=== PATIENT | female | born 1960 | race Caucasian/White ===

== ENCOUNTER → 2016-11-03 | Outpatient (CLI) | payer BC ==
[~2016-11-03] MED LIST: ACETAMINOPHEN-H1 TA2 PO; CIPRO500 MG PO; FLAGYL500 MG PO; METFORMIN500 MG PO; PRAVACHOL40 MG PO; TANZEUM50 MG SC
[2016-11-03 09:10] LABS: BASO # 0.1 10*3/uL (0.0-0.1); BASO % 0.5 % (0.0-1.0); EOS # 0.2 10*3/uL (0.0-0.4); EOS % 1.7 % (1.0-4.0); HEMATOCRIT 47.6 % (37.0-47.0); HEMOGLOBIN 16.1 g/dl (12.0-16.0); IG # 0.1 10*3/uL (0.0-0.1); LYMPH # 2.9 10*3/uL (1.3-4.4); LYMPH % 31.1 % (27.0-41.0); MEAN CELL VOLUME 84.7 fl (81.0-99.0); MEAN CORPUSCULAR HGB 28.6 pg (27.0-31.0); MEAN CORPUSCULAR HGB CONC 33.8 g/dl (33.0-37.0); MEAN PLATELET VOLUME 9.8 fl (9.6-12.3); MONO # 0.8 10*3/uL (0.1-1.0); MONO % 8.2 % (3.0-9.0); NEUT # 5.4 10*3/uL (2.3-7.9); NEUT % 57.7 % (47.0-73.0); PLATELET COUNT AUTOMATED 327 10*3/uL (130-400); RED BLOOD COUNT 5.62 10*6/uL (4.10-5.10); RED CELL DISTRI WIDTH 13.5 % (0-14.5); WHITE BLOOD COUNT 9.3 10*3/uL (4.8-10.8)
[2016-11-03 09:31] LABS: HEMOGLOBIN A1c 9.4 % (4.8-5.6)
[2016-11-03 09:40] LABS: ALBUMIN 3.5 gm/dl (3.1-4.5); ALKALINE PHOSPHATASE 106 U/L (45-117); BILIRUBIN, TOTAL 0.5 mg/dl (0.2-1.0); BUN 13 mg/dl (7-24); CARBON DIOXIDE 26 mmol/L (21-32); CHLORIDE 103 mmol/L (98-107); CHOLESTEROL 211 mg/dL (<200); EST GLOM FILT AFRICAN AMERICAN > 60 ml/min; GLUCOSE 215 mg/dL (65-99); HDL CHOLESTEROL 45 mg/dl (40-60); LDL CHOLESTEROL 112 mg/dL (9-159); POTASSIUM 3.6 mmol/L (3.5-5.1); SGOT/AST 20 IU/L (3-35); SGPT/ALT 31 U/L (12-78); SODIUM 141 mmol/L (136-145); TOTAL PROTEIN 7.4 gm/dL (6.4-8.2); TRIGLYCERIDES 268 mg/dl (<150); VLDL CHOLESTEROL 54 mg/dL (6-40)
== END | disposition home or self-care (01) ==
LOC: LAB 08:13
PROVIDERS: Internal Medicine
DX: E11.9 Type 2 diabetes mellitus without complications (principal); I10 Essential (primary) hypertension; E78.5 Hyperlipidemia, unspecified

== ENCOUNTER → 2017-01-16 | Day surgery (SDC) | payer BC ==
[~2017-01-16] VITALS: Ht 160 cm; Wt 99.8 kg
[~2017-01-16] MED LIST changes: +LISINOPRIL10 M1 PO; +NORCO 5-325 TA1 EACH PO
--- NOTE | ~2017-01-16 | PROC NOTE ---
[place], [place] PROCEDURE NOTE NAME: PEYMAN WILSON UNIT #: [id number] ROOM: DOCTOR: HONORIO LOPEZ MD BIRTHDATE: [birth year] DOS: 01/16/2017 PREOPERATIVE DIAGNOSIS: Left gluteal soft tissue mass. POSTOPERATIVE DIAGNOSIS: Left gluteal soft tissue mass. PROCEDURE: Excision of left gluteal soft tissue mass. SURGEON: Honorio Lopez M.D. [employer] REFINING [employer]ER: PGY1. ANESTHESIA: Local. INDICATIONS: This is a 56-year-old lady with a longstanding history of a symptomatic left gluteal mass, who is here for the above-mentioned procedure. The procedure and its complications explained to the patient in detail. Complications that were discussed included, but were not limited to bleeding, infection, hematoma/seroma/abscess formation, and prolonged pain. She agreed to proceed. DESCRIPTION OF PROCEDURE: After identifying the patient, the patient was brought to the operative suite and laid in the supine position. The patient was placed in the right lateral position and the parts were painted and draped in the usual sterile fashion and a time-out procedure was called. An incision was marked in the long access of the incision and local anesthesia was infiltrated. Incision was made with the help of knife and deepened in layers. The mass was excised in its entirety after it was dissected away from the surrounding structures and sent for histopathological diagnosis, and after hemostasis was achieved, the subcutaneous tissue was then approximated with the help of 3-0 Vicryl in an interrupted fashion and the skin was approximated with the help of 4-0 Vicryl in a subcuticular running fashion. Dressing was placed. The patient tolerated the procedure well. There were no complications. Dr. Honorio Lopez, the attending surgeon, was present throughout the operating case. Honorio Lopez MD CM:PROCNOTE:PROCEDURE NOTE [id number] HONORIO LOPEZ MD
[2017-01-16 12:28] VITALS: BP 207/115
[2017-01-16 12:43] VITALS: BP 206/128
== END | disposition home or self-care (01) ==
LOC: SDC 01-15 13:00
DX: D18.01 Hemangioma of skin and subcutaneous tissue (principal); E11.9 Type 2 diabetes mellitus without complications; I10 Essential (primary) hypertension

== ENCOUNTER → 2017-03-10 | Outpatient (CLI) | payer BC ==
[2017-03-10 08:28] LABS: ALBUMIN 3.5 gm/dl (3.1-4.5); BILIRUBIN, TOTAL 0.5 mg/dl (0.2-1.0); BUN 16 mg/dl (7-24); CARBON DIOXIDE 28 mmol/L (21-32); CHLORIDE 104 mmol/L (98-107); CHOLESTEROL 233 mg/dL (<200); EST GLOM FILT AFRICAN AMERICAN > 60 ml/min; GLUCOSE 271 mg/dL (65-99); SGOT/AST 19 IU/L (3-35); SGPT/ALT 27 U/L (12-78); SODIUM 138 mmol/L (136-145); TOTAL PROTEIN 7.7 gm/dL (6.4-8.2); TRIGLYCERIDES 346 mg/dl (<150); VLDL CHOLESTEROL 69 mg/dL (6-40)
[2017-03-10 08:29] LABS: ALKALINE PHOSPHATASE 102 U/L (45-117); HDL CHOLESTEROL 45 mg/dl (40-60); HEMOGLOBIN A1c 10.6 % (4.8-5.6); LDL CHOLESTEROL 119 mg/dL (9-159)
== END | disposition home or self-care (01) ==
LOC: LAB 07:18
PROVIDERS: Internal Medicine
DX: E11.9 Type 2 diabetes mellitus without complications (principal)

== ENCOUNTER 2017-03-19 02:11 | Emergency (ER) | payer BC ==
[~2017-03-19] VITALS: Wt 90.7 kg
[2017-03-19] MEDS ORDERED: GLYBURIDE5 MG PO (02:16)
[2017-03-19] MEDS ORDERED: ALLEGRA-D 24 H1 EACH PO (03:18)
[2017-03-19] MEDS ORDERED: AUGMENTIN 875875 MG PO (03:18)
[2017-03-19] MEDS ORDERED: ACULAR 3ML 3 ML5 ML OPH (03:25)
== END 2017-03-19 03:35 | disposition home or self-care (01) ==
LOC: ED 02:11
DX: H10.13 Acute atopic conjunctivitis, bilateral (principal); J02.9 Acute pharyngitis, unspecified; J01.90 Acute sinusitis, unspecified; I10 Essential (primary) hypertension; E11.9 Type 2 diabetes mellitus without complications; E78.5 Hyperlipidemia, unspecified; Z91.040 Latex allergy status

== ENCOUNTER → 2017-10-03 | Outpatient (CLI) | payer BC ==
[~2017-10-03] MED LIST changes: +ACULAR 3ML 3 ML5 ML OPH; +ALLEGRA-D 24 H1 EACH PO; +AUGMENTIN 875875 MG PO; +GLYBURIDE5 MG PO
[2017-10-04 08:08] LABS: CREATININE,URINE 130.1 mg/dL (Not Estab.); MICRO ALBUMIN/CRE RATIO 55.7 (0.0-30.0)
== END | disposition home or self-care (01) ==
LOC: LAB 06:15
PROVIDERS: Nurse Practitioner Family
DX: E11.65 Type 2 diabetes mellitus with hyperglycemia (principal)

== ENCOUNTER → 2017-12-28 | Outpatient (CLI) | payer BC ==
[2017-12-28 08:49] LABS: ALBUMIN 3.3 gm/dl (3.1-4.5); ALKALINE PHOSPHATASE 99 U/L (45-117); BUN 13 mg/dl (7-24); CHLORIDE 101 mmol/L (98-107); CHOLESTEROL 218 mg/dL (<200); CREATININE 0.73 mg/dL (0.55-1.02); HDL CHOLESTEROL 40 mg/dl (40-60); LDL CHOLESTEROL 113 mg/dL (9-159); POTASSIUM 3.6 mmol/L (3.5-5.1); SGOT/AST 17 IU/L (3-35); SGPT/ALT 31 U/L (12-78); SODIUM 137 mmol/L (136-145); TOTAL PROTEIN 7.4 gm/dL (6.4-8.2); TRIGLYCERIDES 325 mg/dl (<150); VLDL CHOLESTEROL 65 mg/dL (6-40)
[2017-12-30 10:05] LABS: MICRO ALBUMIN/CRE RATIO 125.9 (0.0-30.0)
== END | disposition home or self-care (01) ==
LOC: LAB 07:34
PROVIDERS: Nurse Practitioner Family
DX: E11.65 Type 2 diabetes mellitus with hyperglycemia (principal)

== ENCOUNTER → 2018-02-12 | Outpatient (CLI) | payer BC | END | disposition home or self-care (01) | LOC: LAB 04:52 | DX: E55.9 Vitamin D deficiency, unspecified (principal) ==

== ENCOUNTER → 2018-04-01 | Outpatient (CLI) | payer BC ==
[2018-04-01 06:36] LABS: ALBUMIN 3.5 gm/dl (3.1-4.5); ALKALINE PHOSPHATASE 91 U/L (45-117); BUN 17 mg/dl (7-24); CHLORIDE 106 mmol/L (98-107); CHOLESTEROL 204 mg/dL (<200); CREATININE 0.89 mg/dL (0.55-1.02); HDL CHOLESTEROL 40 mg/dl (40-60); LDL CHOLESTEROL 114 mg/dL (9-159); POTASSIUM 4.1 mmol/L (3.5-5.1); SGOT/AST 15 IU/L (3-35); SGPT/ALT 29 U/L (12-78); SODIUM 142 mmol/L (136-145); TOTAL PROTEIN 7.7 gm/dL (6.4-8.2); TRIGLYCERIDES 248 mg/dl (<150); VLDL CHOLESTEROL 50 mg/dL (6-40)
[2018-04-02 10:03] LABS: CREATININE,URINE 90.1 mg/dL (Not Estab.); MICRO ALBUMIN/CRE RATIO 59.6 (0.0-30.0)
== END | disposition home or self-care (01) ==
LOC: LAB 05:31
PROVIDERS: Nurse Practitioner Family
DX: E11.65 Type 2 diabetes mellitus with hyperglycemia (principal); E55.9 Vitamin D deficiency, unspecified

== ENCOUNTER 2020-07-23 09:25 | Emergency (ER) | payer BC ==
[~2020-07-23] VITALS: Ht 160 cm; Wt 77.1 kg
[2020-07-23] MEDS ORDERED: IBU800 MG PO (10:50)
== END 2020-07-23 11:08 | disposition home or self-care (01) ==
LOC: ED 09:25
DX: S82.65XA Nondisplaced fracture of lateral malleolus of left fibula, initial encounter for closed fracture (principal); Z91.040 Latex allergy status; X50.1XXA Overexertion from prolonged static or awkward postures, initial encounter; Y93.89 Activity, other specified; Y92.89 Other specified places as the place of occurrence of the external cause; Y99.8 Other external cause status

== ENCOUNTER → 2020-08-23 | Outpatient (CLI) | payer BC ==
[~2020-08-23] MED LIST changes: +IBU800 MG PO
[2020-08-23 08:05] LABS: BASO % 0.3 % (0.0-1.0); EOS # 0.2 10*3/uL (0.0-0.4); EOS % 1.8 % (1.0-4.0); HEMATOCRIT 42.4 % (37.0-47.0); MEAN CORPUSCULAR HGB 28.6 pg (27.0-31.0); MEAN CORPUSCULAR HGB CONC 32.5 g/dl (33.0-37.0); MEAN PLATELET VOLUME 9.5 fl (9.6-12.3); MONO # 0.6 10*3/uL (0.1-1.0); NEUT # 5.1 10*3/uL (2.3-7.9); NEUT % 57.5 % (47.0-73.0); PLATELET COUNT AUTOMATED 289 10*3/uL (130-400); RED BLOOD COUNT 4.82 10*6/uL (4.10-5.10); RED CELL DISTRI WIDTH 13.9 % (0-14.5)
[2020-08-23 08:16] LABS: ALBUMIN 3.5 gm/dl (3.1-4.5); ALKALINE PHOSPHATASE 132 U/L (45-117); BUN 16 mg/dl (7-24); CHLORIDE 110 mmol/L (98-107); CHOLESTEROL 171 mg/dL (<200); CREATININE 0.74 mg/dL (0.55-1.02); POTASSIUM 3.8 mmol/L (3.5-5.1); SGOT/AST 15 IU/L (3-35); SGPT/ALT 22 U/L (12-78); SODIUM 145 mmol/L (136-145); TOTAL PROTEIN 7.2 gm/dL (6.4-8.2); TRIGLYCERIDES 151 mg/dl (<150)
[2020-08-23 08:18] LABS: PREALBUMIN 27 mg/dl (20-40)
[2020-08-23 09:07] LABS: FERRITIN 93.6 ng/mL (10.0-291.0)
[2020-08-28 08:47] LABS: ZINC, PLASMA 94 ug/dL (56-134)
== END | disposition home or self-care (01) ==
LOC: LAB 07:05
PROVIDERS: ATTEND Physician Assistant
DX: K91.2 Postsurgical malabsorption, not elsewhere classified (principal)

== ENCOUNTER → 2020-11-25 | Outpatient (CLI) | payer BC ==
[2020-11-25 09:57] LABS: ALBUMIN 3.5 gm/dl (3.1-4.5); ALKALINE PHOSPHATASE 150 U/L (45-117); BUN 16 mg/dl (7-24); CHLORIDE 108 mmol/L (98-107); CHOLESTEROL 197 mg/dL (<200); HDL CHOLESTEROL 55 mg/dl (40-60); LDL CHOLESTEROL 109 mg/dL (9-159); POTASSIUM 3.8 mmol/L (3.5-5.1); SGOT/AST 15 IU/L (3-35); SGPT/ALT 22 U/L (12-78); SODIUM 142 mmol/L (136-145); TOTAL PROTEIN 7.6 gm/dL (6.4-8.2); TRIGLYCERIDES 166 mg/dl (<150); VLDL CHOLESTEROL 33 mg/dL (6-40)
== END | disposition home or self-care (01) ==
LOC: LAB 07:49
PROVIDERS: ATTEND Family Medicine
DX: R73.01 Impaired fasting glucose (principal)

== ENCOUNTER → 2021-08-01 | Outpatient (CLI) | payer BC | END | disposition home or self-care (01) | LOC: COVID19 16:12 | PROVIDERS: ATTEND Internal Medicine | DX: U07.1 COVID-19 (principal) ==

== ENCOUNTER → 2021-09-12 | Outpatient (CLI) | payer BC ==
[2021-09-12 09:39] LABS: BASO % 0.3 % (0.0-1.0); EOS # 0.2 10*3/uL (0.0-0.4); EOS % 1.8 % (1.0-4.0); LYMPH # 2.8 10*3/uL (1.3-4.4); LYMPH % 23.5 % (27.0-41.0); MEAN CELL VOLUME 87.2 fl (81.0-99.0); MEAN CORPUSCULAR HGB CONC 32.1 g/dl (33.0-37.0); MEAN PLATELET VOLUME 9.2 fl (9.6-12.3); MONO # 0.9 10*3/uL (0.1-1.0); MONO % 7.2 % (3.0-9.0); NEUT % 66.8 % (47.0-73.0); PLATELET COUNT AUTOMATED 338 10*3/uL (130-400); RED BLOOD COUNT 4.93 10*6/uL (4.10-5.10); RED CELL DISTRI WIDTH 14.1 % (0-14.5)
[2021-09-12 09:57] LABS: ALBUMIN 3.4 gm/dl (3.1-4.5); ALKALINE PHOSPHATASE 129 U/L (45-117); BUN 16 mg/dl (7-24); CHLORIDE 109 mmol/L (98-107); CHOLESTEROL 177 mg/dL (<200); CREATININE 0.74 mg/dL (0.55-1.02); POTASSIUM 3.6 mmol/L (3.5-5.1); PREALBUMIN 29 mg/dl (20-40); SGOT/AST 18 IU/L (3-35); SGPT/ALT 21 U/L (12-78); SODIUM 141 mmol/L (136-145); TOTAL PROTEIN 7.7 gm/dL (6.4-8.2); TRIGLYCERIDES 158 mg/dl (<150)
[2021-09-12 10:33] LABS: FERRITIN 65.8 ng/mL (10.0-291.0); VITAMIN D, 25-HYDROXY 22.8 ng/mL (30-100)
== END | disposition home or self-care (01) ==
LOC: LAB 09:18
PROVIDERS: ATTEND Physician Assistant
DX: K91.2 Postsurgical malabsorption, not elsewhere classified (principal)

== ENCOUNTER → 2022-11-20 | Outpatient (CLI) | payer BC | END | disposition home or self-care (01) | LOC: MAMMO 09:19 | PROVIDERS: ATTEND Family Medicine | DX: Z12.31 Encounter for screening mammogram for malignant neoplasm of breast (principal); N64.9 Disorder of breast, unspecified ==